=== PATIENT | female | born 2000 | race African-American/Black ===

== ENCOUNTER 2019-07-10 12:40 | Emergency (ER) | payer MEDICAID | END 2019-07-10 13:00 | disposition home or self-care (01) | LOC: ERS 12:40 | DX: L03.116 Cellulitis of left lower limb (principal); F17.210 Nicotine dependence, cigarettes, uncomplicated | CPT/HCPCS: 99282 ==

== ENCOUNTER 2023-03-16 21:29 | Emergency (ER) | payer OTHER ==
[2023-03-16] MEDS ORDERED: Ketorolac Tromethamine 30 MG/ML VIAL ONE (21:50)
== END 2023-03-16 22:09 | disposition home or self-care (01) ==
LOC: ERS 21:29
DX: M25.512 Pain in left shoulder (principal); F17.210 Nicotine dependence, cigarettes, uncomplicated; Y92.89 Other specified places as the place of occurrence of the external cause
CPT/HCPCS: 96372; 99283; J1885